=== PATIENT | male | born 1980 ===

== ENCOUNTER 2018-04-06 07:37 | Emergency (ER) | payer SELFPAY ==
[2018-04-06 07:49] VITALS: BP 130/68
[2018-04-06] MEDS ORDERED: Rabies VIRUS VACCINE (Imovax)* 2.5 UNIT/ML 1 ML IM ONE (08:05)
[2018-04-06] MEDS ORDERED: Rabies Immune Globulin 2 ML* 150 UNITS/ML VIAL (KEDRAB) IM ONE (08:05)
[2018-04-06] MEDS ORDERED: Rabies Immune Globulin 10 ML* 150 UNIT/ML VIAL (KEDRAB) IM ONE (08:05)
--- NOTE | 2018-04-06 08:05 | UC ---
Bite Injury/Animal HPI - HPI Summary HPI Summary: 38 yo male presents with exposure to rabies. He tells me that he was around a cow that tested positive for rabies. He says that he was not bitten, scratched, and does not believe he was in contact with the cow's salvia - but isn't completely sure. It was recommended that he undergo rabies vaccination by the [facility]. He has no symptoms or questions at this time. - History of Current Complaint Chief Complaint: UCGeneralIllness Stated Complaint: ANIMAL BITE Time Seen by Provider: 04/06/18 08:05 Hx Obtained From: Patient Severity Currently: None Pain Intensity: 0 Pain Scale Used: 0-10 Numeric - Allergies/Home Medications Allergies/Adverse Reactions: Allergies Allergy/AdvReac Type Severity Reaction Status Date / Time No Known Allergies Allergy Verified 04/06/18 07:50 Home Medications: Home Medications NK [No Home Medications Reported] 04/06/18 [History Confirmed 04/06/18] PMH/Surg Hx/FS Hx/Imm Hx - Additional Past Medical History Additional PMH: None - Surgical History Surgical History: Yes Surgery Procedure, Year, and Place: appendix removed in 2014 - Family History Known Family History: Positive: None - Social History Occupation: Employed Full-time Lives: With Family Alcohol Use: Occasionally Substance Use Type: None Smoking Status (MU): Never Smoked Tobacco Review of Systems All Other Systems Reviewed And Are Negative: Yes Constitutional: Positive: Negative Skin: Positive: Negative Respiratory: Positive: Negative Cardiovascular: Positive: Negative Gastrointestinal: Positive: Negative Neurovascular: Positive: Negative Neurological: Positive: Negative Psychological: Positive: Negative Physical Exam - Summary Physical Exam Summary: GENERAL: NAD. WDWN. No pain distress. SKIN: No bites or scratches. No abscesses or rash. NECK: Supple. Nontender. No lymphadenopathy. CHEST: No accessory muscle use. Breathing comfortably and in no distress. CV: Pulses intact. NEURO: Alert. PSYCH: Age appropriate behavior. Triage Information Reviewed: Yes Vital Signs: Initial Vital Signs Temp 98.4 F 04/06/18 07:41 Pulse 81 04/06/18 07:41 Resp 16 04/06/18 07:41 BP 130/68 04/06/18 07:41 Pulse Ox 99 04/06/18 07:41 Vital Signs Reviewed: Yes Bite Injury Course/Dx - Course Course Of Treatment: Rabies vaccine and tdap given. RIG 11.3mL given as protocol by health department. Pt tolerated well. Advised to f/u with Health department. - Differential Dx/Diagnosis Provider Diagnosis: Rabies exposure Discharge - Sign-Out/Discharge Documenting (check all that apply): Patient Departure All imaging exams completed and their final reports reviewed: No Studies - Discharge Plan Condition: Stable Disposition: HOME Patient Education Materials: Rabies Immune Globulin (By injection), Rabies (ED) , Rabies Vaccine (ED) Referrals: Lizbeth More NP [Primary Care Provider] - Additional Instructions: If you develop a fever, shortness of breath, chest pain, new or worsening symptoms - please call your PCP or go to the ED. Please follow up with the Health Department - Billing Disposition and Condition Condition: STABLE Disposition: Home
[2018-04-06] MEDS ORDERED: Tetan/Diph/Pertus SYR(Tdap)* 0.5 ML SYR(BOOSTRIX) use SYR IM ONE (08:07)
[2018-04-06] MEDS ORDERED: Rabies Immune Globulin 2 ML* 150 UNITS/ML VIAL IM ONE (08:18)
== END 2018-04-06 08:55 | disposition home or self-care (01) ==
LOC: UCEAST 07:37
DX: Z20.3 Contact with and (suspected) exposure to rabies (principal)
CPT/HCPCS: 90375; 90471; 90472; 90715; 96372; 99201; G0463